=== PATIENT | male | born 1970 | race American Indian/Alaskan Native ===

== ENCOUNTER 2016-07-09 11:07 | Observation (INO) | payer OTHER ==
[2016-07-09 11:47] LABS: Basophils % (Auto) 0.9 % (0.0-1.8); Eosinophils % (Auto) 3.5 % (0.0-4.3); Hematocrit 39.8 % (35.5-45.6); Hemoglobin 13.3 gm/dl (11.8-15.2); Mean Corpuscular HGB Conc 33 % (32-34); Mean Corpuscular Hemoglobin 31 pg (28-32); Mean Corpuscular Volume 94 fl (84-94); Platelet Count 187 K/mm3 (140-440); Red Blood Count 4.24 M/mm3 (3.65-5.03); Red Cell Distribution Width 12.7 % (13.2-15.2); White Blood Count 4.8 K/mm3 (4.5-11.0)
[2016-07-09 11:58] LABS: Partial Thromboplastin Time 26.9 Sec. (24.2-36.6)
[2016-07-09] MEDS ORDERED: NACL 0.45% 1000 ML 1,000 ML IV SCH (12:00)
[2016-07-09] MEDS ORDERED: ANCEF/STERILE WATER 2 GM/20 ML 2 GM/20 ML SYRINGE IV NR (12:00)
[2016-07-09 12:08] LABS: BUN/Creatinine Ratio 6.81; Calcium 8.7 mg/dL (8.4-10.2); Chloride 99.6 mmol/L (98-107)
[2016-07-09 12:24] LABS: Potassium 5.6 mmol/L (3.6-5.0)
[2016-07-09] MEDS ORDERED: NACL 0.9% 1,000 ML, VANCOMYCIN VIAL 1,000 MG IR ONE (12:40)
[2016-07-09] MEDS ORDERED: NACL 0.9% 500 ML IR ONE (13:19)
[2016-07-09] MEDS: XYLOCAINE 2% INFILTRATI ONE ×2 (13:42→14:37)
[2016-07-09] MEDS: MARCAINE 0.25% INFILTRATI ONE ×2 (13:43→14:37)
[2016-07-09] MEDS: VERSED ONE ×5 (13:44→15:13)
[2016-07-09] MEDS: SUBLIMAZE ONE ×4 (13:44→14:42)
[2016-07-09] MEDS: ANCEF/STERILE WATER 2 GM/20 ML 2 GM/20 ML SYRINGE IV ONE ×2 (13:47→14:05)
[2016-07-09] MEDS ORDERED: VANCOMYCIN VIAL 1,000 MG in NACL 0.9% 1,000 ML IRRIGATION ONE (15:05)
[2016-07-09] MEDS ORDERED: SUBLIMAZE ONE (15:09)
--- NOTE | 2016-07-09 15:37 | Progress Note ---
Subjective Date of service: 07/09/16 Interval history: Pt underwent single chamber ICD implant without apparent complications - see procedure note which has been placed in the chart. If stable, discharge in AM with home medications and following prescriptions: 1. Keflex 500 mg po tid x 3 days 2. Percocet 5/325 q 6 hours prn pain (10 tabs). Orlin Limon MD Objective Vital Signs Temp Resp BP Pulse Ox 07/09/16 11:53 98.2 F 18 158/92 96 - Labs and Meds Coagulation 07/09/16 Range/Units 11:27 PT 13.1 (12.2-14.9) Sec. INR 1.00 (0.87-1.13) APTT 26.9 (24.2-36.6) Sec. CBC 07/09/16 Range/Units 11:27 WBC 4.8 (4.5-11.0) K/mm3 RBC 4.24 (3.65-5.03) M/mm3 Hgb 13.3 (11.8-15.2) gm/dl Hct 39.8 (35.5-45.6) % Plt Count 187 (140-440) K/mm3 Lymph # 2.2 (1.2-5.4) K/mm3 Thayer # 0.4 (0.0-0.8) K/mm3 Eos # 0.2 (0.0-0.4) K/mm3 Baso # 0.0 (0.0-0.1) K/mm3 Comprehensive Metabolic Panel 07/09/16 07/09/16 Range/Units 11:27 11:30 Sodium 140 (137-145) mmol/L Potassium 5.6 H 4.2 D (3.6-5.0) mmol/L Chloride 99.6 (98-107) mmol/L Carbon Dioxide 27 (22-30) mmol/L BUN 15 (9-20) mg/dL Creatinine 2.2 H (0.8-1.5) mg/dL Glucose 99 (75-100) mg/dL Calcium 8.7 (8.4-10.2) mg/dL
[2016-07-09] MEDS ORDERED: NORCO 5/325 PO PRN (15:42)
[2016-07-09] MEDS: BIDIL 20/37.5MG PO SCH ×2 (16:25→21:45)
[2016-07-09] MEDS: ANCEF/NS 1 GM/50 ML 1 GM/50 ML BAG IV SCH (19:57)
[2016-07-09] MEDS: COREG PO SCH (21:45)
[2016-07-10] MEDS: ANCEF/NS 1 GM/50 ML 1 GM/50 ML BAG IV SCH (02:28)
--- NOTE | 2016-07-10 07:07 | Admit Criteria Form ---
Admission Criteria Documentation: TELEMETRY CARE Telemetry Admission Guidelines (Place 'X' for any and all applicable criteria): Admission to telemetry [A] may be indicated for ANY ONE of the following(1)(2)(3 )(4)(5): [X]I. Cardiac disease, including ANY ONE of the following (9)(10)(11)(12)(13 ): [ ]a) Postacute [place] [ ]b) Low-risk patients with ST-segment elevation [place] who have undergone successful percutaneous coronary intervention [ ]c) Unstable angina [ ]d) Suspected [place] (until it is ruled out) [ ]e) Post cardiac surgery (first 48 to 72 hours unless complications occur) [ ]f) Acute arrhythmias (including significant tachycardia or bradycardia) [B] [ ]g) Firing of an implantable cardioverter defibrillator [C] [ ]h) Suspected pacemaker or implantable cardioverter defibrillator malfunction (10) [ ]i) New administration or adjustment of an antiarrhythmic drug [D ] [ ]j) Child admitted for acute congestive heart failure [ ]j) Long QT syndrome [ ]k) Advanced heart block (eg, second-degree Mobitz type II, third- degree heart block) [ ]l) Acute myocarditis or pericarditis [X]m) Short-term (ambulatory or inpatient) monitoring after a cardiac procedure as indicated by ANY ONE of the following [E]: [ ]i) Electrophysiologic studies [ ]ii) Percutaneous coronary intervention with stent placement []iii) Pacemaker placement with cardiac conduction defect [X]iv) Implantable cardiac defibrillator placement [ ]II. Drug overdose or poisoning with substance that causes arrhythmias or QT prolongation (eg, phenothiazines, sympathomimetic agents, cyclic antidepressants, digitalis, antiarrhythmic drugs)(15) [ ]III. Short-term (ambulatory or inpatient) monitoring after therapeutic or diagnostic procedure requiring conscious sedation or anesthesia (eg, endoscopy, elective cardioversion) [ ]IV. Acute cerebrovascular even[F](18) [ ]V. Massive blood transfusion (eg, at least 10 units of packed red blood cells in 24 hours) [ ]. Variceal bleeding after endoscopy, sclerotherapy, or IV vasopressin [ ]VII. Uncorrected electrolyte abnormalities associated with an increased risk of dangerous arrhythmia [G]; examples include [ ]a) Hyperkalemia with attributable ECG changes [ ]b) Potassium greater than 6.5 mmol/L (mEq/L) in a patient without history of chronic renal disease [ ]c) Prolonged QT attributed to hypokalemia, hypomagnesemia, or hypocalcemia [ ]VIII.Unexplained syncope or other neurologic event suspected of being due to arrhythmia due to a finding that increases risk; examples include(19)(20)(21): [ ]a) High-risk ECG findings (eg, bifascicular block, bradycardia, abnormal QT interval, ventricular pre- excitation) [ ]b) History of previous syncope due to arrhythmia [ ]c) Abnormal ventricular function (eg, reduced ejection fraction ) [ ]d) Exertional or supine syncope [ ]e) Concerning syncope characteristics (eg, sudden loss of consciousness without prodrome) [ ]f) Family history of sudden [ ]g) Use of arrhythmogenic medication [ ]h) Suspected cardiac ischemia [ ]i) Known channelopathy (eg, long QT syndrome, Brugada syndrome, or catecholaminergic paroxysmal ventricular tachycardia) [ ]j) Known structural heart disease (eg, hypertrophic cardiomyopathy , severe valvular disease) [ ]k) Palpitations preceding syncope The original [employer] content created by [employer] has been revised. The portions of the content which have been revised are identified through the use of italic text or in bold, and [facility] has neither reviewed nor approved the modified material. All other unmodified content is copyright [employer]. Please see references footnoted in the original [employer] edition 2016 Admission Criteria Met: Yes
[2016-07-10] MEDS: BIDIL 20/37.5MG PO SCH (07:58)
--- NOTE | 2016-07-10 08:13 | XRay Report ---
AP CHEST :07/09/16 16:08 CLINICAL: Postop pacemaker. COMPARISON:None. FINDINGS: The heart is normal size with a AICD lead in the right ventricle. Normal pulmonary vessels. The lungs are normally expanded and clear. The bones and soft tissues are normal. IMPRESSION: Normal chest with an AICD lead in heart
--- NOTE | 2016-07-10 08:54 | Short Stay Summary ---
Short Stay Documentation Date of service: 07/10/16 - History H&P: obtained from office - Allergies and Medications Current Medications: Allergies lisinopril Allergy (Verified 07/09/16 11:26) Swelling Home Medications Medication Instructions Recorded Confirmed Last Taken Type Aspirin [Aspirin EC] 81 mg PO DAILY 07/09/16 07/09/16 07/09/16 History AtorvaSTATin [Lipitor] 40 mg PO DAILY 07/09/16 07/09/16 07/08/16 History Carvedilol [Carvedilol] 12.5 mg PO BID 07/09/16 07/09/16 07/09/16 History Cholecalciferol (Vitamin D3) 1,000 units PO DAILY 07/09/16 07/09/16 07/09/16 History Colchicine [Colchicine] 0.6 mg PO DAILY 07/09/16 07/09/16 07/09/16 History Furosemide [Furosemide] 40 mg PO DAILY 07/09/16 07/09/16 07/09/16 History Isosorb Dinit/Hydralazine HCl 0.5 tab PO TID 07/09/16 07/09/16 07/09/16 History [Bidil Tablet] Multiple Vitamin TAB (Theragran) 1 tab PO DAILY 07/09/16 07/09/16 07/09/16 History Potassium Chloride [Klor-Con 10] 10 meq PO DAILY 07/09/16 07/09/16 07/09/16 History Sacubitril/Valsartan [Entresto 49 1 tab PO DAILY 07/09/16 07/09/16 07/09/16 History mg-51 mg Tablet] Active Medications Acetaminophen/Hydrocodone Bitart (Coolin 5/325) 1 each PO Q6H PRN PRN Reason: Pain, Moderate (4-6) Last Admin: 07/09/16 21:46 Dose: 1 each Aspirin (Halfprin Ec) 81 mg PO DAILY CHELSEA Atorvastatin Calcium (Lipitor) 40 mg PO HS C[place]SEA Carvedilol (Coreg) 12.5 mg PO BID CHELSEA Last Admin: 07/09/16 21:45 Dose: 12.5 mg Furosemide (Lasix) 40 mg PO DAILY C[place]SEA Sodium Chloride (Nacl 0.45% 1000 Ml) 1,000 mls @ 50 mls/hr IV DIRECT CHELSEA Last Admin: 07/09/16 12:46 Dose: 50 mls/hr Isosorbide Dinitrate/Hydralazine (Bidil 20/37.5mg) 0.5 each PO TID CHELSEA Last Admin: 07/10/16 07:58 Dose: 0.5 each Miscellaneous Medication (Sacubitril/Valsartan [Entresto 49 Mg-51 Mg Tablet]) 1 tab PO DAILY CHELSEA Potassium Chloride (K-Dur) 10 meq PO DAILY CHELSEA - Physical exam General appearance: no acute distress HEENT: PERRLA Lungs: Clear to auscultation Heart: Regular rate - Brief post op/procedure progress note Procedure: Pt underwent single chamber ICD implant without apparent complications. - Hospital course Hospital course: Stable overnight observation. - Disposition Condition at discharge: Good Disposition: DISCHARGED TO HOME OR SELFCARE Short Stay Discharge Plan Activity: advance as tolerated Diet: low fat, low cholesterol, low salt Wound: per your surgeon's advice Follow up with: PRIMARY MD JUDD [Primary Care Provider] - 7 Days TEMI GHOTRA MD [Staff Physician] - 7 Days Prescriptions: Cephalexin [Keflex] 500 mg PO Q8HR #9 cap HYDROcodone/APAP 5-325 [Coolin 5-325 mg TAB] 1 each PO Q6H PRN #10 tablet PRN Reason: Pain, Moderate (4-6)
[2016-07-10] MEDS: COREG PO SCH (09:21)
[2016-07-10 09:22] VITALS: BP 134/104
[2016-07-10] MEDS ORDERED: SACUBITRIL PO SCH (10:00)
[2016-07-10] MEDS ORDERED: NON-FORMULARY (Potassium Chloride [Klor-Con 10] 10 MEQ) PO SCH (10:00)
[2016-07-10] MEDS ORDERED: VALSARTAN PO SCH (10:00)
[2016-07-10] MEDS ORDERED: LASIX PO SCH (10:00)
[2016-07-10] MEDS ORDERED: HALFPRIN EC PO SCH (10:00)
[2016-07-10] MEDS ORDERED: K-DUR PO SCH (10:00)
== END 2016-07-10 11:12 | disposition home or self-care (01) ==
LOC: OPU 11:07 → CATH 11:07 → 4A 15:43
PROVIDERS: ADMIT Internal Medicine Cardiovascular Disease; ATTEND Internal Medicine Cardiovascular Disease
DX: I42.0 Dilated cardiomyopathy (principal)
CPT/HCPCS: 33249; 36415; 71010; 80048; 84132; 85025; 85610; 85730; 93005; 93010; 96365; 96366; C1722; C1892; C1895; G0378; J0690; J2250; J3010; J3370